=== PATIENT | female | born 1960 ===

== ENCOUNTER 2017-02-16 18:05 | Observation (INO) ==
--- NOTE | 2017-02-16 18:42 | Emergency Department Note ---
Arrival - Arrival Chief Complaint: Chest Pain Stated Complaint: CHEST PAINS ED Nursing Triage Note: c/o sharp pain in lt side of chest going into shoulder. +sob and nausea Mode of Arrival: Wheelchair Time Seen by Provider: 02/16/17 18:26 - History of Present Illness HPI Narrative: This is a 56-year-old white female with a history of previous CVA and TIA, dementia, hypertension, COPD, diabetes with diabetic gastroparesis who presents with chest pain which started suddenly at 3:30 PM today and caused her to fall down but not pass out. She said it was associated with diaphoresis but no shortness of breath nor nausea. Patient states that she fell on her backside when she attempted to get up. She has had a negative stress test 7 years ago and has had at least one negative cardiac catheterization 10 years ago. She has a strong family history of coronary artery disease. Date of Last Menstrual Period: [facility] Allergies/Adverse Reactions: Allergies Allergy/AdvReac Type Severity Reaction Status Date / Time Penicillins Allergy SHORTNESS Verified 12/26/15 16:19 OF BREATH Home Medications: Home Medications Medication Instructions Recorded Confirmed Type Clopidogrel [Plavix] 75 mg PO BEDTIME 12/26/15 12/26/15 History Donepezil [Aricept] 10 mg PO BEDTIME 12/26/15 12/26/15 History Insulin Aspart Prot/Insuln Asp 15 units SUBCUT DAILY 12/26/15 12/26/15 History [NovoLOG Mix 70-30 FlexPen] Memantine [Namenda] 0.5 mg PO BID 12/26/15 12/26/15 History Nortriptyline [Pamelor] 50 mg PO BEDTIME 12/26/15 12/26/15 History OXcarbazepine [Trileptal] 300 mg PO BEDTIME 12/26/15 12/26/15 History Pantoprazole Tab [Protonix Tab] 40 mg PO QAM 12/26/15 12/26/15 History Pregabalin [Lyrica] 225 mg PO BID 12/26/15 12/26/15 History Quetiapine Fumarate [Seroquel] 200 mg PO QAM 12/26/15 12/26/15 History Quetiapine Fumarate [Seroquel] 400 mg PO BEDTIME 12/26/15 12/26/15 History Sitagliptin Phos/Metformin HCl 1 each PO BID 12/26/15 12/26/15 History [Janumet 50-1,000 mg Tablet] Temazepam [Restoril] 15 mg PO BEDTIME 12/26/15 12/26/15 History Venlafaxine HCl [Effexor XR] 150 mg PO BID 12/26/15 12/26/15 History clonazePAM TAB [KlonoPIN] 0.5 mg PO TID 12/26/15 12/26/15 History Albuterol/Ipratropium Neb [Duoneb] 3 ml RESP TX RT Q6H #120 12/27/15 Rx nebulization solution Budesonide/Formoterol 160-4.5 2 puff INH BID #1 inhaler 12/27/15 Rx [Symbicort 160-4.5] HYDROcodone/ACETAMIN 7.5-325 1 tablet PO Q4H #30 tablet 12/27/15 Rx [[place] 7.5-325] Losartan Potassium [Cozaar] 100 mg PO DAILY #30 tablet 12/27/15 Rx Sodium Chloride 0.65% Nasal Sp 2 spray BOTH NARES QID nasal spray 12/27/15 Rx [[place] Nasal [place]] Tiotropium [place] [Spiriva 4 gm IH DAILY #1 mist.inhal 12/27/15 Rx Respimat] Review of System - Review of System Constitutional: Absent: fever Eyes: Absent: vision change, other Head/Ears/Nose/Throat: Absent: nasal drainage Respiratory: Absent: respiratory distress Cardiovascular: Present: chest pain. Absent: palpitations, dyspnea on exertion , syncope Gastrointestinal: Absent: nausea, melena Genitourinary female: Absent: dyspareunia, frequency Musculoskeletal: Absent: joint swelling, leg pain, neck pain Skin: Absent: change in color Neurological: Absent: confusion Psychiatric: Absent: depression, suicidal thoughts Endocrine: Absent: heat intolerance, polydipsia Hematological/Lymphatic: Absent: easy bruising, lymphadenopathy Allergic/Immunologic: Absent: urticaria, itchy eyes Medical,Surgical,& Family Hx - Medical History Cardio: History of: Hypertension Psychological: History of: Depression Neurology: History of: Cerebrovascular Accident, Dementia, TIA Endocrine: History of: Diabetes Mellitus (IDDM) Respiratory: History of: COPD - Surgical History Abdominal Surgeries: Surgical HX of: Cholecystectomy Orthopedic Surgeries: Surgical HX of;: Spinal Surgery (neck) - Social History Smoking Status: Current every day smoker Frequency of Alcohol Use: None Type of Drug Use: None Exam Vital Signs: Vital Signs Temperature 97.2 F L 02/16/17 18:36 Pulse Rate 76 02/16/17 18:36 Respiratory Rate 20 02/16/17 18:36 Blood Pressure 181/79 02/16/17 18:36 O2 Sat by Pulse Oximetry 98 02/16/17 18:25 - General Exam limited due to: ALOC - Head Head exam: Present: atraumatic - Eye Eye exam: Present: PERRL, EOMI - ENT ENT exam: Present: normal exam, normal oropharynx - Neck Neck exam: Present: normal inspection, full ROM - Chest Chest inspection: Present: normal inspection - Respiratory Respiratory exam: Present: normal lung sounds bilaterally - Cardiovascular Cardiovascular exam: Present: regular rate, normal rhythm - Abdominal Exam Abdominal exam: Present: soft, distention, normal bowel sounds - Extremities Exam Extremities exam: Present: normal inspection, full ROM - Back Exam Back exam: Present: normal inspection, full ROM. Absent: CVA tenderness (R), CVA tenderness (L) - Neurological Exam Neurological exam: Present: alert, oriented X3, CN II-XII intact - Psychiatric Psychiatric exam: Present: normal affect, normal mood - Skin Skin exam: Present: warm, dry
[2017-02-16] MEDS ORDERED: PANTOPRAZOLE 40 MG VIAL IV STA (18:51)
[2017-02-16] MEDS ORDERED: KETOROLAC 30 MG/1 ML VIAL IV STA (18:51)
[2017-02-16 18:57] LABS: Basophils % 0.3 % (0.0-0.8); Eosinophils # 0.2 10*3/uL (0.0-0.87); Eosinophils % 1.9 % (0.00-10.9); Hematocrit 41.2 VOL% (35.7-47.0); Hemoglobin 14.6 GM/DL (12.0-16.0); Immature Granulocytes % 0.4 %; Immature Granulocytes Absolute 0.04 #; Lymphocytes # 2.6 10*3/uL (1.4-4.0); Lymphocytes % 26.2 % (21.3-54.2); Mean Corpuscular HGB Conc 35.4 GM/DL (32-36); Mean Corpuscular Hemoglobin 33 PG (27-34); Mean Corpuscular Volume 91.8 FL (87-102); Mean Platelet Volume 9.9 FL (9.6-12.0); Monocytes # 0.8 10*3/uL (0.11-0.8); Monocytes % 7.7 % (1.7-12.7); Neutrophils # 6.2 10*3/uL (1.4-7.4); Neutrophils % 63.5 % (38.7-73.9); Platelet Count 389 T/CUMM (130-400); Red Blood Count 4.49 MC/CUMM (3.8-5.5); Red Cell Distribution Width 13.5 % (9.3-17.3); White Blood Count 9.8 T/CUMM (4-12)
[2017-02-16 19:12] LABS: Alanine Aminotransferase 26 U/L (13-56); Alkaline Phosphatase 93 U/L (45-117); Aspartate Amino Transferase 17 U/L (0-37); Bilirubin,Total < 0.39 MG/DL (0.2-1.0); Blood Urea Nitrogen 9 MG/DL (7-18); Calcium 9.5 MG/DL (8.5-10.1); Glucose 129 MG/DL (74-106); Osmolality,Calculated 270.1 MOS/KG (273-304); Sodium 135 MMOL/L (136-145); Total Protein 7.4 G/DL (6.4-8.3); Troponin I Only < 0.015 NG/ML (0.00-0.045)
[2017-02-16] MEDS ORDERED: KETOROLAC 30 MG/1 ML VIAL ONE (19:13)
[2017-02-16] MEDS ORDERED: PANTOPRAZOLE 40 MG VIAL IV ONE (19:13)
[2017-02-16] MEDS ORDERED: MORPHINE 2 MG/1 ML SYRINGE IV PRN (20:59)
[2017-02-16] MEDS ORDERED: ACETAMINOPHEN 325 MG TABLET PO PRN (20:59)
[2017-02-16] MEDS ORDERED: ZALEPLON 5 MG CAPSULE PO PRN (20:59)
[2017-02-16] MEDS ORDERED: ENOXAPARIN 40 MG/0.4 ML SYRINGE SUBCUT SCH (21:00)
[2017-02-16] MEDS ORDERED: DEXTROSE 50% 25 GM/50 ML SYRINGE IV PRN (21:04)
[2017-02-16] MEDS ORDERED: GLUCAGON 1 MG VIAL IM PRN (21:04)
[2017-02-16] MEDS ORDERED: BUDESONIDE/FORMOTEROL 160-4.5 INHALER 6 GM INH PRN (21:05)
[2017-02-16] MEDS ORDERED: ALBUTEROL/IPRATROPIUM 3 ML NEB RESP TX PRN (21:05)
[2017-02-16] MEDS ORDERED: CLOPIDOGREL 75 MG TABLET PO SCH (21:30)
[2017-02-16] MEDS ORDERED: DONEPEZIL 10 MG TABLET PO SCH (21:30)
[2017-02-16] MEDS ORDERED: OXcarbazepine 300 MG TABLET PO SCH (21:30)
--- NOTE | 2017-02-16 21:40 | Hospitalist History & Physical ---
Assessment and Plan (1) Chest pain at rest Problem details: Chest pain at rest scoring 10 out of 10 radiating to left arm. Pain relieved with ASA. Uncomfortable feeling at this time not realy scoring pain. History of DM, Obesity, HTN, and strong family history. Status: Acute Assessment and plan: Chest Pain Continue to monitor on telemetry, Trend Cardiac enzymes and EKGs, lipid panel in the am Nitoglycerin ointment, Cardiac diet, npo after midnight. Cardiology Consult in am. Continue Lasix and cardiac medications. Continue ASA and Plavix. Pt. is morbidly obese, DM, and HTN with strong family CAD history. Current Visit: Yes (2) Hypertension Status: Chronic Assessment and plan: HTN: Continue to monitor BP q 4 hours, monitor telemetry. Continue home antihypertensives, Nitro ointment q 6 hours. Follow up with primary for HTN upon discharge. Current Visit: No Qualifiers: Hypertension type: essential hypertension Qualified Code(s): I10 - Essential (primary) hypertension (3) COPD (chronic obstructive pulmonary disease) Status: Chronic Assessment and plan: HX of COPD No cough or wheezing noted. No acute exacerbation. Continue Duonebulizers. Oxygen as needed to maintain o2 sats greater than 92%. Current Visit: No Qualifiers: COPD type: unspecified COPD Qualified Code(s): J44.9 - Chronic obstructive pulmonary disease, unspecified (4) Diabetes mellitus Status: Chronic Assessment and plan: DM type II with complications/ Gastroparesis 1. Accu ACHS and Insulin sliding scale. HGB A1c if she has not had one recently. Current Visit: No Qualifiers: Diabetes mellitus type: type 2 Diabetes mellitus complication detail: with other oral complications Diabetes mellitus chcf insulin use: with chcf use (5) Gastroparesis due to DM Status: Chronic Assessment and plan: Gastropariesis- Continue Protonix. Being followed by GI on outpatient basis. Current Visit: Yes History of Present Illness Chief complaint: Chest Pain History of present illness: Ms. Ms. Marquez is a 56 year old female with a past medical history significant for COPD, diabetes, TIAs, CVA, Depression, Gastroparesis that presented to the ED with sudden onset chest pain this afternoon starting at 330. She described the chest pain as stabbing in nature on a scale of 10 out of 10 at the time which she states" it knocked me out". She states she had been resting at the time the chest pain occured. Possible contributing factors including lifting her 1 year old grand daughter and "keeping up with her". Associated factors included diaphoresis, nausea and SOB. She states her pain was relieved when she took two [id number] each. She also takes Plavix on a daily basis. She also states she has had maroon colored stools for the last several months and had a colonoscopy last year and is suppose to be scheduling a EGD for next week. PCP is Dr. Darvin Rogers, Software Quality Specialist is DR. Ortiz and GI pohysician is Dr. Guzmán. Patient states she has recently been treated with clindamycin for strep and finished her antibiotics 1 week ago. EKG SR with no ST elevation noted. Labs reflect mild hyponatremia, mild hyperglycemia with troponin less than 0.015 and Osmolality of 270.1. Patient is being admitted to Hospitalist service under observation status. She has a strong family history of CAD. Her father is currently her in the hospital and just received 3 stents and her brother has had a LA recently. Home Medications Medication Instructions Recorded Confirmed Type Clopidogrel [Plavix] 75 mg PO BEDTIME 12/26/15 02/16/17 History Donepezil [Aricept] 10 mg PO BEDTIME 12/26/15 02/16/17 History Insulin Aspart Prot/Insuln Asp 20 units SUBCUT BIDAC 12/26/15 02/16/17 History [NovoLOG Mix 70-30 FlexPen] Memantine [Namenda] 0.5 mg PO BID 12/26/15 02/16/17 History OXcarbazepine [Trileptal] 300 mg PO BEDTIME 12/26/15 02/16/17 History Pantoprazole Tab [Protonix Tab] 40 mg PO QAM 12/26/15 02/16/17 History Pregabalin [Lyrica] 225 mg PO BID 12/26/15 02/16/17 History Quetiapine Fumarate [Seroquel] 200 mg PO QAM 12/26/15 02/16/17 History Quetiapine Fumarate [Seroquel] 400 mg PO BEDTIME 12/26/15 02/16/17 History Sitagliptin Phos/Metformin HCl 1 each PO BID 12/26/15 02/16/17 History [Janumet 50-1,000 mg Tablet] Venlafaxine HCl [Effexor XR] 150 mg PO BID 12/26/15 02/16/17 History Albuterol/Ipratropium Neb [Duoneb] 3 ml RESP TX RT Q6H PRN 02/16/17 02/16/17 History Aspirin EC Tab 325 mg PO QAM 02/16/17 02/16/17 History Budesonide/Formoterol 160-4.5 2 puff INH BID PRN 02/16/17 02/16/17 History [Symbicort 160-4.5] HYDROcodone/ACETAMIN 7.5-325 1 tablet PO Q4H PRN 02/16/17 02/16/17 History [[place] 7.5-325] Losartan Potassium [Cozaar] 100 mg PO QAM 02/16/17 02/16/17 History Tiotropium [place] [Spiriva 1 spray INH QAM 02/16/17 02/16/17 History Respimat] Zaleplon [Sonata] 5 mg PO BEDTIME 02/16/17 02/16/17 History Allergies Allergy/AdvReac Type Severity Reaction Status Date / Time Penicillins Allergy SHORTNESS Verified 12/26/15 16:19 OF BREATH Medical,Surgical,& Family Hx - Medical History Cardio: History of: Hypertension Psychological: History of: Depression Neurology: History of: Cerebrovascular Accident, Dementia, TIA HEENT: History of: Eye Problem (wears glasses normally but does not have any at this time. ) Endocrine: History of: Diabetes Mellitus (IDDM) Respiratory: History of: COPD Gastrointestinal: History of: Gastrointestinal Bleed, GI Problems (Diarrhea upon presentation, hx of Gastroparies) Musculoskeletal: History of: Musculoskeletal Problems (Right Knee problems.) - Surgical History Abdominal Surgeries: Surgical HX of: Cholecystectomy Orthopedic Surgeries: Surgical HX of;: Orthopedic Surgery (Right ankle and knee surgery x 2. ), Spinal Surgery (neck) - Family History Family History: noncontributory Family History: Reports;: Family Diabetes, Family Heart Disease, Family Hypertension - Social History Smoking Status: Current every day smoker (1 pack a day for over 40 years.) Time spent discussing smoking cessation with patient: 3 to 10 minutes Frequency of Alcohol Use: Rarely Type of Drug Use: None, Marijuana (She smokes marijuana occasionally for gastropariesis. ) Marital Status: Lives With:: Spouse Functional capacity: uses cane/walker (uses a cane) - Constitutional Constitutional: Present: as per HPI, weight loss - Cardiovascular Cardiovascular: Present: chest pain at rest, diaphoresis, dyspnea - Gastrointestinal Gastrointestinal: Present: diarrhea, dyspepsia, nausea, other (melena stools sees GI for this planning EGD next week. ) - Psychiatric Psychiatric: Present: depression - Endocrine Endocrine: Present: polyuria - Hematologic/Lymphatic Hematologic/Lymphatic: Present: easy bruising Exam - Constitutional Vitals: Period Temp Pulse Resp BP Sys/Ross Pulse Ox Last 24 Hr 97.2 F-97.2 F 72-76 18-20 154-181/79-88 96-100 General appearance: morbidly obese - Head Head exam: Present: normal inspection - Eye Eye exam: Present: EOMI, periorbital swelling (slight periorbital swelling) Pupils: Present: LISA - ENT ENT exam: Present: normal exam - Neck Neck exam: Present: normal inspection - Respiratory Respiratory exam: Present: clear to auscultation bilaterally - Cardiovascular Cardiovascular exam: Present: regular rate and rhythm (s1 and S2 audible. ) - GI/Abdominal GI/Abdominal exam: Present: normal bowel sounds - Extremities Exam Extremities exam: Present: full ROM, other (MAEW 5/5) - Back Exam Back exam: Present: normal inspection - Neurological Exam Neurological exam: Present: alert, oriented X3, CN II-XII intact - Skin Skin exam: Present: normal color, warm, dry Results - Labs CBC & BMP: 02/16/17 18:29 02/16/17 18:29 - EKG EKG results: sinus rhythm EKG shows: sinus rhythm - Impressions 1. Chest Pain 2. HTN 3. DM Quality Measures - VTE Deep Vein Thrombosis/Pulmonary Embolism Present on Admission: No
[2017-02-16] MEDS ORDERED: QUEtiapine 100 MG TABLET PO SCH (22:00)
[2017-02-16] MEDS: IPRATROPIUM 500 MCG/2.5 ML NEB RESP TX SCH (22:03)
[2017-02-16 22:55] LABS: Risk Ratio 3.52; VLDL CHOLESTEROL 43.2 MG/DL
[2017-02-16] MEDS: PREGABALIN 75 MG CAPSULE PO SCH (23:35)
[2017-02-16] MEDS: NITROGLYCERIN 2% OINT 1 INCH/GM PACK TOP SCH (23:40)
[2017-02-16] MEDS: ONDANSETRON 4 MG/2 ML VIAL IV PRN (23:52)
--- NOTE | 2017-02-17 05:50 | EKG Report ---
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
[2017-02-17] MEDS: NITROGLYCERIN 2% OINT 1 INCH/GM PACK TOP SCH (06:38)
--- NOTE | 2017-02-17 07:26 | EKG Report ---
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
[2017-02-17] MEDS ORDERED: INSULIN REGULAR 100 UNIT/ML SUBCUT SCH (07:30)
[2017-02-17] MEDS: IPRATROPIUM 500 MCG/2.5 ML NEB RESP TX SCH ×3 (07:49→14:37)
[2017-02-17] MEDS ORDERED: VENLAFAXINE XR 75 MG CAPSULE PO SCH (09:00)
[2017-02-17] MEDS ORDERED: QUEtiapine 100 MG TABLET PO SCH (09:00)
[2017-02-17] MEDS ORDERED: ASPIRIN EC 325 MG TABLET PO SCH (09:00)
[2017-02-17] MEDS ORDERED: PANTOPRAZOLE 40 MG TABLET PO SCH (09:00)
[2017-02-17] MEDS ORDERED: LOSARTAN 50 MG TABLET PO SCH (09:00)
[2017-02-17] MEDS ORDERED: MEMANTINE 10 MG TABLET PO SCH (09:00)
[2017-02-17] MEDS: ONDANSETRON 4 MG/2 ML VIAL IV PRN (09:23)
--- NOTE | 2017-02-17 11:45 | Discharge Summary ---
Hospital Course - Hospital Course Hospital Course: Ms. Marquez is a 56 year old female with a past medical history significant for COPD, diabetes, TIAs, CVA, Depression, Gastroparesis that presented to the ED with sudden onset chest pain this afternoon starting at 330. She describes the chest pain is sharp in nature which has completely resolved. Her serial troponins are negative. She does have some abdominal discomfort which is common she said from her gastroparesis. She said her diarrhea has been a little worse since taking clindamycin. We will check her for C. difficile negative we will discharge her home if cardiology is in agreement that no further workup is needed. Her blood sugars are on the low side because she has not been eating well and I have held the Janumet metformin. This may be contributing to more of her nausea. In gastroparesis patient says him to stick with just insulin. Patient will be discharged home today to follow-up with Dr. [place] and with cardiology. - Time spent with patient Time with patient DS: Less than 30 minutes (25 min) Discharge Plan - Discharge Data Disposition: Disch To Home/Self Care Condition at Discharge: Stable Discharge Diet: diabetic diet Activity: resume usual activities as tolerated Hygiene: no restrictions Weight Bearing at Discharge: full weight bearing - Discharge Medications Continue Pantoprazole Tab [Protonix Tab] 40 mg PO QAM Memantine [Namenda] 5 mg PO BID Pregabalin [Lyrica] 225 mg PO BID Donepezil [Aricept] 10 mg PO BEDTIME Clopidogrel [Plavix] 75 mg PO BEDTIME Quetiapine Fumarate [Seroquel] 400 mg PO BEDTIME Quetiapine Fumarate [Seroquel] 200 mg PO QAM OXcarbazepine [Trileptal] 300 mg PO BEDTIME Insulin Aspart Prot/Insuln Asp [NovoLOG Mix 70-30 FlexPen] 20 units SUBCUT BIDAC Venlafaxine HCl [Effexor XR] 150 mg PO BID Aspirin EC Tab 325 mg PO QAM Tiotropium [place] [Spiriva Respimat] 1 spray INH QAM Losartan Potassium [Cozaar] 100 mg PO QAM Budesonide/Formoterol 160-4.5 [Symbicort 160-4.5] 2 puff INH BID PRN PRN Reason: Shortness Of Breath/Wheezing Albuterol/Ipratropium Neb [Duoneb] 3 ml RESP TX RT Q6H PRN PRN Reason: Shortness Of Breath HYDROcodone/ACETAMIN 7.5-325 [[place] 7.5-325] 1 tablet PO Q4H PRN PRN Reason: Pain Zaleplon [Sonata] 5 mg PO BEDTIME Discontinued Sitagliptin Phos/Metformin HCl [Janumet 50-1,000 mg Tablet] 1 each PO BID - Follow Up or Referral Follow Up: dr jaimee [Other] - 2 Weeks Gilberto Sheriff MD [Physician] - 2 Weeks Luis Fernando oBston MD [Physician] - 1 Week - Forms/Instructions Additional Discharge Instructions: may be discharged home if okay with cardiology and stool for c. diff is negative or unable to have a stool Exam - Constitutional Vitals: Period Temp Pulse Resp BP Sys/Ross Pulse Ox Last 24 Hr 96.8 F-97.4 F 61-76 16-20 154-181/77-88 92-100 General appearance: normal weight, no acute distress - Respiratory Respiratory exam: Present: clear to auscultation bilaterally - Cardiovascular Cardiovascular exam: Present: regular rate and rhythm - GI/Abdominal GI/Abdominal exam: Present: normal bowel sounds, soft. Absent: tenderness - Neurological Exam Neurological exam: Present: alert, oriented X3 - Psychiatric Psychiatric exam: Present: normal affect, normal mood Discharge Results Procedures and tests throughout hospitalization: Pending Orders 02/17/17 10:20 C. Diff Toxins A & B Stat Stool for WBCs Stat Labs on day of discharge: Labs from last 24 hours 02/17/17 02/17/17 02/17/17 11:28 07:51 04:28 WBC RBC Hgb Hct MCV MCH MCHC RDW Plt Count MPV Neut % (Auto) Lymph % (Auto) Day % (Auto) Eos % (Auto) Baso % (Auto) Neut # (Auto) Lymph # (Auto) Day # (Auto) Eos # (Auto) Baso # (Auto) Immature Gran % Nucleated RBC % Immature Gran # Nucleated RBCs # Immature Plt Fraction Sodium Potassium Chloride Carbon Dioxide Anion Gap BUN Creatinine GFR Calculation BUN/Creatinine Ratio Glucose POC Glucose 181 H 124 H Calculated Osmolality Calcium Total Bilirubin AST ALT Alkaline Phosphatase Troponin I < 0.015 Total Protein Albumin Globulin Albumin/Globulin Ratio Triglycerides Cholesterol LDL Cholesterol VLDL Cholesterol HDL Cholesterol Heart Disease Risk Ratio Lipase 02/17/17 02/16/1702/16/17 01:17 Unknown Unknown WBC RBC Hgb Hct MCV MCH MCHC RDW Plt Count MPV Neut % (Auto) Lymph % (Auto) Day % (Auto) Eos % (Auto) Baso % (Auto) Neut # (Auto) Lymph # (Auto) Day # (Auto) Eos # (Auto) Baso # (Auto) Immature Gran % Nucleated RBC % Immature Gran # Nucleated RBCs # Immature Plt Fraction Sodium Potassium Chloride Carbon Dioxide Anion Gap BUN Creatinine GFR Calculation BUN/Creatinine Ratio Glucose POC Glucose Calculated Osmolality Calcium Total Bilirubin AST ALT Alkaline Phosphatase Troponin I < 0.015 < 0.015 Total Protein Albumin Globulin Albumin/Globulin Ratio Triglycerides 216 H Cholesterol 162 LDL Cholesterol 80.0 VLDL Cholesterol 43.2 HDL Cholesterol 46 Heart Disease Risk Ratio 3.52 Lipase 02/16/17 02/16/17 02/16/17 18:29 18:29 18:29 WBC 9.8 RBC 4.49 Hgb 14.6 Hct 41.2 MCV 91.8 MCH 33 MCHC 35.4 RDW 13.5 Plt Count 389 MPV 9.9 Neut % (Auto) 63.5 Lymph % (Auto) 26.2 Day % (Auto) 7.7 Eos % (Auto) 1.9 Baso % (Auto) 0.3 Neut # (Auto) 6.2 Lymph # (Auto) 2.6 Day # (Auto) 0.8 Eos # (Auto) 0.2 Baso # (Auto) 0.0 Immature Gran % 0.4 Nucleated RBC % 0.0 Immature Gran # 0.04 Nucleated RBCs # 0.00 Immature Plt Fraction 0.0 Sodium 135 L Potassium 4.0 Chloride 100 Carbon Dioxide 28 Anion Gap 11.0 BUN 9 Creatinine 0.90 GFR Calculation 71 BUN/Creatinine Ratio 10.00 Glucose 129 H POC Glucose Calculated Osmolality 270.1 L Calcium 9.5 Total Bilirubin < 0.39 AST 17 ALT 26 Alkaline Phosphatase 93 Troponin I < 0.015 Total Protein 7.4 Albumin 4.0 Globulin 3.4 Albumin/Globulin Ratio 1.1 Triglycerides Cholesterol LDL Cholesterol VLDL Cholesterol HDL Cholesterol Heart Disease Risk Ratio Lipase 146.0 DS: Provider Date of admission: 02/16/17 20:59 Primary care physician: . No PCP Attending physician on admission: Luis Fitzgerald MD Consults: 02/16/17 21:02 Consult to Physician [CONS] Routine Comment: Consulting Provider: Cardiology - [facility] Consult to Specialist Group: Cardiology Person Notified: Soila Date Notified: 02/17/17 Time Notified: 08:05 Discharging clinician: Emmanuelle Neil MD
[2017-02-17 11:48] VITALS: BP 179/76
--- NOTE | 2017-02-17 11:49 | Discharge Summary ---
Hospital Course - Hospital Course Hospital Course: Ms. Marquez is a 56 year old female with a past medical history significant for COPD, diabetes, TIAs, CVA, Depression, Gastroparesis that presented to the ED with sudden onset chest pain this afternoon starting at 330. She describes the chest pain is sharp in nature which has completely resolved. Her serial troponins are negative. She does have some abdominal discomfort which is common she said from her gastroparesis. She said her diarrhea has been a little worse since taking clindamycin. We will check her for C. difficile negative we will discharge her home if cardiology is in agreement that no further workup is needed. Her blood sugars are on the low side because she has not been eating well and I have held the Janumet metformin. This may be contributing to more of her nausea. In gastroparesis patient says him to stick with just insulin. Patient will be discharged home today to follow-up with Dr. Boston and with cardiology. Specialty Discharge - Follow Up or Referrals Follow up with: dr jaimee [Other] - 2 Weeks Gilberto Sheriff MD [Physician] - 2 Weeks Luis Fernando Boston MD [Physician] - 1 Week Discharge Plan - Discharge Data Disposition: Disch To Home/Self Care - Discharge Medications Continue Pantoprazole Tab [Protonix Tab] 40 mg PO QAM Memantine [Namenda] 5 mg PO BID Pregabalin [Lyrica] 225 mg PO BID Donepezil [Aricept] 10 mg PO BEDTIME Clopidogrel [Plavix] 75 mg PO BEDTIME Quetiapine Fumarate [Seroquel] 400 mg PO BEDTIME Quetiapine Fumarate [Seroquel] 200 mg PO QAM OXcarbazepine [Trileptal] 300 mg PO BEDTIME Insulin Aspart Prot/Insuln Asp [NovoLOG Mix 70-30 FlexPen] 20 units SUBCUT BIDAC Venlafaxine HCl [Effexor XR] 150 mg PO BID Aspirin EC Tab 325 mg PO QAM Tiotropium [place] [Spiriva Respimat] 1 spray INH QAM Losartan Potassium [Cozaar] 100 mg PO QAM Budesonide/Formoterol 160-4.5 [Symbicort 160-4.5] 2 puff INH BID PRN PRN Reason: Shortness Of Breath/Wheezing Albuterol/Ipratropium Neb [Duoneb] 3 ml RESP TX RT Q6H PRN PRN Reason: Shortness Of Breath HYDROcodone/ACETAMIN 7.5-325 [[place] 7.5-325] 1 tablet PO Q4H PRN PRN Reason: Pain Zaleplon [Sonata] 5 mg PO BEDTIME Discontinued Sitagliptin Phos/Metformin HCl [Janumet 50-1,000 mg Tablet] 1 each PO BID - Follow Up or Referral Follow Up: dr jaimee [Other] - 2 Weeks Gilberto Sheriff MD [Physician] - 2 Weeks Luis Fernando Boston MD [Physician] - 1 Week - Forms/Instructions Exam - Constitutional Vitals: Period Temp Pulse Resp BP Sys/Ross Pulse Ox Last 24 Hr 96.8 F-97.4 F 61-76 16-20 154-181/76-88 92-100 Discharge Results Procedures and tests throughout hospitalization: Pending Orders 02/17/17 10:20 C. Diff Toxins A & B Stat Stool for WBCs Stat Labs on day of discharge: Labs from last 24 hours 02/17/17 02/17/17 02/17/17 11:28 07:51 04:28 WBC RBC Hgb Hct MCV MCH MCHC RDW Plt Count MPV Neut % (Auto) Lymph % (Auto) [place] % (Auto) Eos % (Auto) Baso % (Auto) Neut # (Auto) Lymph # (Auto) [place] # (Auto) Eos # (Auto) Baso # (Auto) Immature Gran % Nucleated RBC % Immature Gran # Nucleated RBCs # Immature Plt Fraction Sodium Potassium Chloride Carbon Dioxide Anion Gap BUN Creatinine GFR Calculation BUN/Creatinine Ratio Glucose POC Glucose 181 H 124 H Calculated Osmolality Calcium Total Bilirubin AST ALT Alkaline Phosphatase Troponin I < 0.015 Total Protein Albumin Globulin Albumin/Globulin Ratio Triglycerides Cholesterol LDL Cholesterol VLDL Cholesterol HDL Cholesterol Heart Disease Risk Ratio Lipase 02/17/17 02/16/17 02/16/17 01:17 Unknown Unknown WBC RBC Hgb Hct MCV MCH MCHC RDW Plt Count MPV Neut % (Auto) Lymph % (Auto) [place] % (Auto) Eos % (Auto) Baso % (Auto) Neut # (Auto) Lymph # (Auto) [place] # (Auto) Eos # (Auto) Baso # (Auto) Immature Gran % Nucleated RBC % Immature Gran # Nucleated RBCs # Immature Plt Fraction Sodium Potassium Chloride Carbon Dioxide Anion Gap BUN Creatinine GFR Calculation BUN/Creatinine Ratio Glucose POC Glucose Calculated Osmolality Calcium Total Bilirubin AST ALT Alkaline Phosphatase Troponin I < 0.015 < 0.015 Total Protein Albumin Globulin Albumin/Globulin Ratio Triglycerides 216 H Cholesterol 162 LDL Cholesterol 80.0 VLDL Cholesterol 43.2 HDL Cholesterol 46 Heart Disease Risk Ratio 3.52 Lipase 02/16/17 02/16/17 02/16/17 18:29 18:29 18:29 WBC 9.8 RBC 4.49 Hgb 14.6 Hct 41.2 MCV 91.8 MCH 33 MCHC 35.4 RDW 13.5 Plt Count 389 MPV 9.9 Neut % (Auto) 63.5 Lymph % (Auto) 26.2 [place] % (Auto) 7.7 Eos % (Auto) 1.9 Baso % (Auto) 0.3 Neut # (Auto) 6.2 Lymph # (Auto) 2.6 [place] # (Auto) 0.8 Eos # (Auto) 0.2 Baso # (Auto) 0.0 Immature Gran % 0.4 Nucleated RBC % 0.0 Immature Gran # 0.04 Nucleated RBCs # 0.00 Immature Plt Fraction 0.0 Sodium 135 L Potassium 4.0 Chloride 100 Carbon Dioxide 28 Anion Gap 11.0 BUN 9 Creatinine 0.90 GFR Calculation 71 BUN/Creatinine Ratio 10.00 Glucose 129 H POC Glucose Calculated Osmolality 270.1 L Calcium 9.5 Total Bilirubin < 0.39 AST 17 ALT 26 Alkaline Phosphatase 93 Troponin I < 0.015 Total Protein 7.4 Albumin 4.0 Globulin 3.4 Albumin/Globulin Ratio 1.1 Triglycerides Cholesterol LDL Cholesterol VLDL Cholesterol HDL Cholesterol Heart Disease Risk Ratio Lipase 146.0 DS: Provider Date of admission: 02/16/17 20:59 Primary care physician: . No PCP Attending physician on admission: Luis Fitzgerald MD Consults: 02/16/17 21:02 Consult to Physician [CONS] Routine Comment: Consulting Provider: Cardiology - [facility] Consult to Specialist Group: Cardiology Person Notified: Soila Date Notified: 02/17/17 Time Notified: 08:05 Discharging clinician: Vani Montalvo NP
[2017-02-17] MEDS: PREGABALIN 75 MG CAPSULE PO SCH (11:50)
--- NOTE | 2017-02-17 12:33 | Cardiology Consult Note ---
Leatha, Brenna Solis RN, am scribing for, and in the presence of, Gilberto Sheriff MD 12:30. Assessment and Plan - Time spent with patient Time spent with patient: Greater than 30 minutes (Due to assessment, planning, documentation, and medication review) Time spent discussing smoking cessation with patient: 3 to 10 minutes (1) Chest pain at rest Problem details: Chest pain at rest scoring 10 out of 10 radiating to left arm. Pain relieved with ASA. Uncomfortable feeling at this time not realy scoring pain. History of DM, Obesity, HTN, and strong family history. Status: Acute Assessment and plan: The patient had very atypical, brief chest pain symptoms associated with moving. It really sounds more like a muscle cramp. Her EKG and cardiac enzymes are benign. She is also having a lot of problems with gastroparesis in the same general area as her pain yesterday. Ultimately, I do not think her current symptoms are cardiac. I think we can let her go home. However, with her risk factors I would like to get a outpatient cardiac ischemic screen. I will follow with her after this testing is complete. Current Visit: Yes (2) Hypertension Status: Chronic Assessment and plan: Blood pressure suboptimally controlled this morning. Will adjust antihypertensive regimen. Current Visit: No Qualifiers: Hypertension type: essential hypertension Qualified Code(s): I10 - Essential (primary) hypertension (3) Diabetes mellitus Status: Chronic Assessment and plan: Glucose levels relatively well controlled at this time. Current Visit: No Qualifiers: Diabetes mellitus type: type 2 Diabetes mellitus complication detail: with other oral complications Diabetes mellitus dock coordinator insulin use: with dock coordinator use (4) Dyslipidemia Status: Chronic Assessment and plan: Fasting lipid panel reviewed. Reportedly takes atorvastatin routinely at home. Current Visit: Yes (5) Gastroparesis due to DM Status: Chronic Assessment and plan: Patient reports she is having a current "flare up" related to gastroparesis. Reportedly has been offered gastric pacemaker in the past but has declined. Current Visit: Yes (6) History of CVA (cerebrovascular accident) without residual deficits Status: Chronic Assessment and plan: Appears stable. No significant residual weakness s/p CVA. Continue Plavix and ASA. Current Visit: No (7) COPD (chronic obstructive pulmonary disease) Status: Chronic Assessment and plan: Appears stable at this time. Continue current plan of care. Current Visit: No Qualifiers: COPD type: unspecified COPD Qualified Code(s): J44.9 - Chronic obstructive pulmonary disease, unspecified (8) Depression Status: Chronic Assessment and plan: Continue current plan of care per attending physician. Current Visit: No (9) Marijuana use Status: Chronic Assessment and plan: Patient reports use of marijuana routinely for appetite stimulation. Greater than 5 minutes spent discussing importance of abstaining from illicit drug use. Current Visit: Yes (10) Tobacco dependence Status: Chronic Assessment and plan: Greater than 5 minutes spent discussing the importance and merits of tobacco cessation. 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 HUNT Ms. Marquez, 56 year old WF, with risk factor significant for: hypertension , dyslipidemia, obesity, sedentary lifestyle, strong family history of CAD, and she is a current everyday smoker. Patient's father is actually a current patient on the telemetry floor. Patient says she has recently cut back on the amount that she smokes from 1-1/2 PPD to 1 PPD because she "cannot breathe." Patient has COPD. Patient has had several TIAs with a CVA approximately 2 years ago, has an element of dementia, and also takes Aricept and Namenda. She takes Plavix and aspirin prescribed by her Dr. Otto. Other history includes gastroparesis, and she admits that she smokes marijuana for appetite stimulation. Says she has lost approximately 20 pounds in the last month due to poor appetite. Patient presented to the ED yesterday evening with complaints sharp left-sided chest pain with some shortness of breath, diaphoresis, and nausea, onset approximately 3 PM yesterday. Troponin level nondetectable, EKG benign for acute ST elevation. Cardiology asked to see for further evaluation of chest pain. Overnight, serial troponin levels have remained normal. Sinus rhythm per telemetry, pulse rate 70s. SBP 155-175 mmHg range. Patient is pleasant, and she has not had any further chest pain since arrival to the hospital. Says she was sitting on the couch at her daughter's house yesterday afternoon when she had a sudden "sharp, stabbing chest pain" of the left chest. This began when she went to sit up from a seated position. The symptoms lasted for just a few seconds. By her description it sounds like this could have been a muscle spasm. Says she is unsure if it radiated into her neck because she has chronic neck pain due to a C3-C7 issues. Follow routinely with Dr. Gonzalez for pain management. She denies any diaphoresis, dyspnea, or vomiting. She did have some mild nausea, but also says she has chronic severe gastroparesis. The patient also says she is having a gastroparesis "flare up" right now, has had some moderate diarrhea. No palpitations, presyncope. Reports this episode happened recurred after she left her daughter's house, she became concerned it may be heart related, and presented for evaluation. Patient took 2 ASA prior to arrival and has not had any further episodes of chest pain. She also says that while she was at her daughter's house, she had been lifting up her granddaughter a lot, tending to her, and may have some muscle straining. Denies exertional chest discomfort or dyspnea Has also had some maroon colored stools recently and is supposed to be planned for EGD next week with Dr. Boston. Patient says she has undergone previous left heart catheterization, cannot recall if this was in [place] or [facility] in [place], but says she received favorable results. No old clinic records or hospital records available. It is noted that she had an echocardiogram in December [address] Iyer. Triglycerides 216. Reports she routinely takes atorvastatin but do not see it recorded on home medication list. Current Medications Acetaminophen (Tylenol Tab) 650 mg PO Q4H PRN PRN Reason: Temperature greater than 101F Hydrocodone Bitart/Acetaminophen ([place] 7.5-325) 1 tablet PO Q4H PRN PRN Reason: Pain Albuterol/Ipratropium (Duoneb) 3 ml RESP TX RT Q6H PRN PRN Reason: Shortness of Breath Aspirin () 325 mg PO DAILY [facility] Budesonide/Formoterol Fumarate (Symbicort 160-4.5) 2 puff INH BID PRN PRN Reason: Shortness of Breath/Wheezing Clopidogrel Bisulfate (Plavix) 75 mg PO BEDTIME [facility] Last Admin: 02/16/17 23:34 Dose: 75 mg Dextrose/Water (D50) 25 gm IV PRN PRN PRN Reason: Hypoglycemia with IV access Donepezil HCl (Aricept) 10 mg PO BEDTIME [facility] Last Admin: 02/16/17 23:34 Dose: 10 mg Enoxaparin Sodium (Lovenox) 40 mg SUBCUT Q24H [facility] Last Admin: 02/16/17 23:33 Dose: 40 mg Glucagon () 1 mg IM PRN PRN PRN Reason: Hypoglycemia w/o IV access Insulin Human Regular (Humulin R) 0 unit SUBCUT ACHS [facility] PRN Reason: Protocol Ipratropium [place] (Atrovent Neb) 500 mcg RESP TX RT QID [facility] Last Admin: 02/17/17 07:49 Dose: 500 mcg Losartan Potassium (Cozaar) 100 mg PO DAILY [facility] Memantine (Namenda) 5 mg PO BID [facility] Morphine Sulfate () 2 mg IV Q5M PRN PRN Reason: Chest Pain Nitroglycerin (Nitro Bid Oint) 0.5 inch TOP Q6HR [facility] Last Admin: 02/17/17 06:38 Dose: 0.5 inch Ondansetron HCl (Zofran Inj) 4 mg IV Q4H PRN PRN Reason: Nausea/Vomiting Last Admin: 02/16/17 23:52 Dose: 4 mg Oxcarbazepine (Trileptal) 300 mg PO BEDTIME [facility] Last Admin: 02/16/17 23:35 Dose: 300 mg Pantoprazole Sodium (Protonix Tab) 40 mg PO QAM [facility] Pregabalin (Lyrica) 225 mg PO BID [facility] Last Admin: 02/16/17 23:35 Dose: 225 mg Quetiapine Fumarate (Seroquel) 200 mg PO QAM [facility] Quetiapine Fumarate (Seroquel) 400 mg PO BEDTIME [facility] Last Admin: 02/16/17 23:34 Dose: 400 mg Venlafaxine HCl (Effexor Xr) 150 mg PO BID [facility] Zaleplon (Sonata) 5 mg PO BEDTIME PRN PRN Reason: Sleep CC: Emmanuelle Neil MD - Home Medications and Allergies Home Medications: Home Medications Medication Instructions Recorded Confirmed Type Clopidogrel [Plavix] 75 mg PO BEDTIME 12/26/15 02/16/17 History Donepezil [Aricept] 10 mg PO BEDTIME 12/26/15 02/16/17 History Insulin Aspart Prot/Insuln Asp 20 units SUBCUT BIDAC 12/26/15 02/16/17 History [NovoLOG Mix 70-30 FlexPen] Memantine [Namenda] 5 mg PO BID 12/26/15 02/17/17 History OXcarbazepine [Trileptal] 300 mg PO BEDTIME 12/26/15 02/16/17 History Pantoprazole Tab [Protonix Tab] 40 mg PO QAM 12/26/15 02/16/17 History Pregabalin [Lyrica] 225 mg PO BID 12/26/15 02/16/17 History Quetiapine Fumarate [Seroquel] 200 mg PO QAM 12/26/15 02/16/17 History Quetiapine Fumarate [Seroquel] 400 mg PO BEDTIME 12/26/15 02/16/17 History Venlafaxine HCl [Effexor XR] 150 mg PO BID 12/26/15 02/16/17 History Albuterol/Ipratropium Neb [Duoneb] 3 ml RESP TX RT Q6H PRN 02/16/17 02/16/17 History Aspirin EC Tab 325 mg PO QAM 02/16/17 02/16/17 History Budesonide/Formoterol 160-4.5 2 puff INH BID PRN 02/16/17 02/16/17 History [Symbicort 160-4.5] HYDROcodone/ACETAMIN 7.5-325 1 tablet PO Q4H PRN 02/16/17 02/16/17 History [[place] 7.5-325] Losartan Potassium [Cozaar] 100 mg PO QAM 02/16/17 02/16/17 History Tiotropium [place] [Spiriva 1 spray INH QAM 02/16/17 02/16/17 History Respimat] Zaleplon [Sonata] 5 mg PO BEDTIME 02/16/17 02/16/17 History Allergies/Adverse Reactions: Allergies Allergy/AdvReac Type Severity Reaction Status Date / Time Penicillins Allergy SHORTNESS Verified 12/26/15 16:19 OF BREATH - Constitutional Constitutional: Present: anorexia, weight loss. Absent: chills, daytime sleepiness, fatigue, fever(s), headache(s), lethargy, weakness - EENT Eyes: Absent: blurry vision Ears: Absent: decreased hearing Nose, mouth and throat: Present: neck pain (Chronic). Absent: dysphagia, epistaxis, neck mass - Cardiovascular Cardiovascular: Present: chest pain at rest - Respiratory Respiratory: Present: cough. Absent: wheezing, change in phlegm color - Gastrointestinal Gastrointestinal: Present: diarrhea, early satiety, nausea. Absent: abdominal pain, constipation, dysphagia, heartburn, hematochezia, melena, vomiting, jaundice - Genitourinary Genitourinary: Absent: abnormal vaginal bleeding, dysuria, flank pain, hematuria - Musculoskeletal Musculoskeletal: Present: arthralgias, myalgias. Absent: limited range of motion - Neurological Neurological: Present: abnormal gait (due to right knee pain; uses cane frequently to assist with ambulation). Absent: confusion, convulsions, dizziness, headache(s), syncope, tremor(s) - Psychiatric Psychiatric: Present: depression. Absent: anxiety - Endocrine Endocrine: Absent: cold intolerance, heat intolerance - Hematologic/Lymphatic Hematologic/Lymphatic: Absent: easy bleeding, easy bruising Medical,Surgical,& Family Hx - Medical History Cardio: History of: Hypertension No history of: Cardiac Dysrhythmia, CHF, CAD, MS, PVD Psychological: History of: Anxiety Disorders, Depression Neurology: History of: Cerebrovascular Accident, Dementia, TIA HEENT: History of: Eye Problem (Corrective lenses) Endocrine: History of: Diabetes Mellitus (IDDM), Dyslipidemia No history of: Thyroid Disorder Rheumatology: No history of;: Gout, Rheumatoid Arthritis, Systemic Lupus Erythematosus Respiratory: History of: COPD No history of: Obstructive Sleep Apnea, Pulmonary Hypertension Renal: No history of: Renal Failure Genitourinary: No history of: Kidney Stones, Recurring Urinary Tract Infections Gastrointestinal: History of: GERD, Gastrointestinal Bleed, GI Problems ( Gastroparesis) No history of: Crohn's Disease, Esophageal Varices, Hepatitis, Pancreatitis Musculoskeletal: History of: Back/Neck Problems, Musculoskeletal Problems Hematology: No history of: Anemia, Blood Transfusion Reaction, Bleeding Problems, Clotting Problems Reproductive: No history of: Breast Cancer Other: No history of: Cancer, HIV - Surgical History Cardiac Surgeries: Patient Denies: Cardiac Catheterization, Cardiac Surgery HEENT Surgeries: Patient denies: Carotid Endarterectomy Abdominal Surgeries: Surgical HX of: Cholecystectomy Reproductive Surgeries: Surgical HX of;: Hysterectomy Orthopedic Surgeries: Surgical HX of;: Orthopedic Surgery (Right ankle with rods and pins, knee surgery x 2.), Spinal Surgery (neck) - Family History Family History: Reports;: Family Cancer (Skin cancer- Dad), Family Diabetes (Dad , Brother, Aunt, Uncle), Family Heart Disease (Dad, Brother), Family Hypertension, Family Stroke (Dad, Aunt), Additional Family History (MS- paternal grandfather, CHF- Dad, Brother) - Social History Smoking Status: Current every day smoker Time spent discussing smoking cessation with patient: 3 to 10 minutes Frequency of Alcohol Use: Rarely Type of Drug Use: Marijuana Functional capacity: uses cane/walker (Due to right knee pain) Physical Examination Vital Signs Temp Pulse Resp BP Pulse Ox 97.2 F L 76 18 181/79 96 02/16/17 18:07 02/16/17 18:07 02/16/17 18:07 02/16/17 18:07 02/16/17 18:07 General: Present: No Apparent Distress HEENT: Present: PERRL, Normocephaly, Mucus Membranes Dry. Absent: Jaundice, Pallor Neck: Present: Supple Neck, Midline Trachea, No JVD/HJR, No Bruit Cardiac: Present: Reg Rate and Rhythm, No Murmur. Absent: Tachycardia, Bradycardia Lungs: Present: Clear Ascult./Percussion, No Wheeze, Rales, Rhonchi. Absent: Oxygen Neuro: Present: Grossly Intact. Absent: Numbness, Tingling, Weakness, Resting Tremor Abdomen: Present: Soft, Active Bowel Sounds, No Masses, Tender (Mild epigastric tenderness). Absent: Firm, Distended Skin: Present: Clear, Other (Warm, dry). Absent: Rash, Suspicious Lesions, Bruising Musculoskeletal: Present: No Fluid Collection, No Pain, Normal Range of Motion Extremities: Present: No Clubbing, No Cyanosis, No Edema, Normal Upper Extr. Pulses (3+ bilaterally), Normal Lower Extr. Pulses (3+ bilaterally), Capillary Refill (Normal) Result/EKG - Labs CBC & BMP: 02/16/17 18:29 02/16/17 18:29 Lab Results: I have reviewed the past 24 hour labs Labs: Laboratory Results - last 24 hr 02/16/17 02/16/17 02/16/17 18:29 18:29 18:29 WBC 9.8 RBC 4.49 Hgb 14.6 Hct 41.2 MCV 91.8 MCH 33 MCHC 35.4 RDW 13.5 Plt Count 389 MPV 9.9 Neut % (Auto) 63.5 Lymph % (Auto) 26.2 [place] % (Auto) 7.7 Eos % (Auto) 1.9 Baso % (Auto) 0.3 Neut # (Auto) 6.2 Lymph # (Auto) 2.6 [place] # (Auto) 0.8 Eos # (Auto) 0.2 Baso # (Auto) 0.0 Immature Gran % 0.4 Nucleated RBC % 0.0 Immature Gran # 0.04 Nucleated RBCs # 0.00 Immature Plt Fraction 0.0 Sodium 135 L Potassium 4.0 Chloride 100 Carbon Dioxide 28 Anion Gap 11.0 BUN 9 Creatinine 0.90 GFR Calculation 71 BUN/Creatinine Ratio 10.00 Glucose 129 H POC Glucose Calculated Osmolality 270.1 L Calcium 9.5 Total Bilirubin < 0.39 AST 17 ALT 26 Alkaline Phosphatase 93 Troponin I < 0.015 Total Protein 7.4 Albumin 4.0 Globulin 3.4 Albumin/Globulin Ratio 1.1 Triglycerides Cholesterol LDL Cholesterol VLDL Cholesterol HDL Cholesterol Heart Disease Risk Ratio Lipase 146.0 02/16/17 02/16/17 02/17/17 Unknown Unknown 01:17 WBC RBC Hgb Hct MCV MCH MCHC RDW Plt Count MPV Neut % (Auto) Lymph % (Auto) [place] % (Auto) Eos % (Auto) Baso % (Auto) Neut # (Auto) Lymph # (Auto) [place] # (Auto) Eos # (Auto) Baso # (Auto) Immature Gran % Nucleated RBC % Immature Gran # Nucleated RBCs # Immature Plt Fraction Sodium Potassium Chloride Carbon Dioxide Anion Gap BUN Creatinine GFR Calculation BUN/Creatinine Ratio Glucose POC Glucose Calculated Osmolality Calcium Total Bilirubin AST ALT Alkaline Phosphatase Troponin I < 0.015 < 0.015 Total Protein Albumin Globulin Albumin/Globulin Ratio Triglycerides 216 H Cholesterol 162 LDL Cholesterol 80.0 VLDL Cholesterol 43.2 HDL Cholesterol 46 Heart Disease Risk Ratio 3.52 Lipase 02/17/17 02/17/17 04:28 07:51 WBC RBC Hgb Hct MCV MCH MCHC RDW Plt Count MPV Neut % (Auto) Lymph % (Auto) [place] % (Auto) Eos % (Auto) Baso % (Auto) Neut # (Auto) Lymph # (Auto) [place] # (Auto) Eos # (Auto) Baso # (Auto) Immature Gran % Nucleated RBC % Immature Gran # Nucleated RBCs # Immature Plt Fraction Sodium Potassium Chloride Carbon Dioxide Anion Gap BUN Creatinine GFR Calculation BUN/Creatinine Ratio Glucose POC Glucose 124 H Calculated Osmolality Calcium Total Bilirubin AST ALT Alkaline Phosphatase Troponin I < 0.015 Total Protein Albumin Globulin Albumin/Globulin Ratio Triglycerides Cholesterol LDL Cholesterol VLDL Cholesterol HDL Cholesterol Heart Disease Risk Ratio Lipase - Diagnostic Findings Procedure: Chest x-ray: image reviewed by me, report reviewed by me - EKG EKG results: interpreted by me, no acute changes EKG shows: sinus rhythm Quality Measures - VTE Deep Vein Thrombosis/Pulmonary Embolism Present on Admission: No Specialty Discharge - Follow Up or Referrals Follow up with: dr jaimee [Other] - 2 Weeks Gilberto Sheriff MD [Physician] - 2 Weeks Luis Fernando Boston MD [Physician] - 1 Week ISharita Michael, MD, personally performed the services described in this documentation, ascribed by Brenna Solis RN in my presence, and it is both accurate and complete 233 .
== END 2017-02-17 15:00 | disposition home or self-care (01) ==
LOC: N.ED 18:05 → INTOOBSV 20:59 → N.EDINP 20:59 → SUATTDRO 20:59 → N.TELEN 21:35
PROVIDERS: ADMIT Internal Medicine; ATTEND Internal Medicine